=== PATIENT | female | born 2000 | race Caucasian/White ===

== ENCOUNTER 2023-11-19 19:15 | Emergency (ER) | payer OTHER, SELFPAY ==
[2023-11-19 19:32] VITALS: BP 144/62; PULSE 81; RESP 14; TEMP 36.6; O2SAT 100
[2023-11-20 00:46] VITALS: BP 150/80; PULSE 74; RESP 15; O2SAT 100
[2023-11-20 00:53] LABS: Add Urine Microscopic? YES; Appearance Urine Cloudy (Clear); Bilirubin Urine Negative (Negative); Blood Urine 3+ (Negative); Color Urine Dark Yellow (Yellow); Glucose Urine UA Negative (Negative); Ketones Urine Trace mg/dL (Negative); Leukocyte Esterase Ur 2+ LEU/UL (Negative); Nitrate Urine Negative (Negative); Non Pathogenic Casts 0-2; Protein Urine 1+ mg/dL (Negative); RBC Urine >100 /hpf (0-2); Specific Grav Ur 1.023 (1.001-1.035); Squamous Epithelial Cell Urine Occasional /hpf (Few); WBC Urine >100 /hpf (0-3); pH Urine 5.5 (5.0-9.0)
[2023-11-20 00:58] LABS: Bacteria Urine 1+ /hpf
[2023-11-20 01:43] LABS: BEDSIDEPREGUCG Negative
--- NOTE | 2023-11-20 02:09 | ED.FEMALEGU ---
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 Patient notes approximately 7 days ago after she urinated she wiped and noticed a little bit of blood with on there and then it went away for few days and then returned approximately 3 days ago is now having a little bit more blood in which she has been wearing pads and today she went through approximately 3 pads in which she did fully saturated over about a 12 hour.. Patient states she has been having some lower abdominal cramping without any laterality to it over the past approximately 9-10 days. Patient admits to having an IUD in place. Patient notes that prior to the onset of the spotting she had intercourse and thought that might be related. Patient denies any abnormal vaginal discharge or history to transmitted infections. Patient denies chest pain, difficulty breathing, lightheadedness, palpitations. Patient is a typical menstrual cycles are regular at 1 per month and last 7 days and she is not a heavy bleeder and her last menstrual period was 7 through the 01 of November. Patient denies any urinary discomfort, frequency, urgency. Patient notes that she follows with a tile picker regularly through [facility]. Patient has never required a blood transfusion. Patient denies any recent injuries or recent illness, fever, vomiting, diarrhea, melena, hematochezia. Related Data Allergies Allergy/AdvReac Type Severity Reaction Status Date / Time No Known Allergies Allergy Verified 11/19/23 19:35 Review of Systems Review of Systems: A 10 system review of systems was completed on the patient and is negative except for what is stated in the HPI. Nursing and ancillary documentation was reviewed. PMFSH Comments At time of signature, I have reviewed and agree with nursing past medical, surgical, social and family history unless otherwise noted. Please see the nursing chart for further information. There is no relevant family history pertinent to the presenting complaint. Exam Narrative: CONST: No acute distress. Well nourished. HENMT: Head is normocephalic and atraumatic. Moist mucous membranes. No posterior oropharynx erythema. EYES: No scleral icterus. No conjunctival injection or pallor. PERRL. NECK: No meningeal signs. RESP: Able to speak in full sentences. Normal respiratory effort. CTAB. CARDIO: Regular rate. Regular rhythm. 2+ DP and radial pulses bilaterally. GI: Nondistended. No tenderness to palpation. Soft. : No CVA tenderness to palpation. SKIN: No rashes or lesions noted on exposed skin. NEURO: Oriented x3. Moves all extremities. EXTREM/MSK/BACK: No pedal edema. PSYCH: Normal affect. Course Vital Signs Vital signs: Vital Signs Temperature 97.9 F 11/19/23 19:32 Pulse Rate 81 11/19/23 19:32 Respiratory Rate 14 11/19/23 19:32 Blood Pressure 144/62 H 11/19/23 19:32 Pulse Oximetry 100 11/19/23 19:32 Oxygen Delivery Room Air 11/19/23 19:32 Temperature 97.9 F 11/19/23 19:32 Pulse Rate 74 11/20/23 00:46 Respiratory Rate 15 11/20/23 00:46 Blood Pressure 150/80 H 11/20/23 00:46 Pulse Oximetry 100 11/20/23 00:46 Oxygen Delivery Room Air 11/19/23 19:32 MDM - Female Genitourinary MDM Narrative Medical decision making narrative: Patient presents with the above complaint. Initial vitals are remarkable for no significant abnormalities. Physical examination as noted above. Differential diagnosis includes was not limited to: related causes of vaginal bleeding versus not related causes of vaginal, UTI, fibroids, adenomyosis, polyps, IV toward dysfunction, coagulopathy, malignancy. The patient and reviewed the various causes of non related a
[2023-11-20] MEDS: CEPHALEXIN 500 MG CAPSULE PO (02:19)
[2023-11-20 02:26] VITALS: BP 138/90; PULSE 71; RESP 15; O2SAT 100
== END 2023-11-20 02:27 | disposition home or self-care (01) ==
PROVIDERS: Emergency Provider Student in an Organized Health Care Education/Training Program
DX: N30.01 Acute cystitis with hematuria (principal); N93.9 Abnormal uterine and vaginal bleeding, unspecified; Z97.5 Presence of (intrauterine) contraceptive device
CPT/HCPCS: 81001; 81025; 87086; 87088; 99283; A9270

== ENCOUNTER 2023-12-22 21:44 | Emergency (ER) | payer OTHER, SELFPAY ==
--- NOTE | ~2023-12-22 | XR_ITS ---
Left ankle Technique: AP, oblique, and lateral views were obtained. Clinical History: Pain Findings: No acute fracture or dislocation is seen. Osseous alignment is anatomic. Ankle mortise and other visualized joint spaces are preserved. Soft tissues are otherwise unremarkable. Impression: Unremarkable left ankle. Reviewed, dictated and finalized at location . Impression: Unremarkable left ankle.
[2023-12-22 21:48] VITALS: BP 156/89; PULSE 82; RESP 18; TEMP 36.3; O2SAT 98
--- NOTE | 2023-12-22 21:48 | ED.LOWEXIN ---
HPI - Extremity Injury (Lower) General Chief Complaint: Extremity Injury, Lower Stated Complaint: left ankle injury Time Seen by Provider: 12/22/23 21:48 Source: patient Mode of arrival: ambulatory Limitations: no limitations History of Present Illness HPI Narrative: 23-year-old female presented to the ED with a 1 day history of -- left ankle pain. Her daughter jumped on a ankle yesterday and twisted it. Subsequently she has been having ankle pain which is worse on walking. No other injuries noted. MD complaint: ankle injury Onset (ago): day(s) ( One day) Type of Injury: eversion Place: home Severity: mild Relieving factors: immobilization Exacerbating factors: weight bearing Other symptoms: none Related Data Home Medications Medication Instructions Recorded Confirmed No Home Medications 12/22/23 12/22/23 Allergies Allergy/AdvReac Type Severity Reaction Status Date / Time No Known Allergies Allergy Verified 11/19/23 19:35 Review of Systems Review of Systems: All systems reviewed & are unremarkable except as noted in HPI and below Exam Narrative: blood pressure is 156/89 Const: General: no acute distress Orientation/consciousness: patient oriented x3 Limitations: no limitations HENMT: Head: normal to inspection Ears: external ears normal Face/Nose/Sinus: Normal external nose present Face and sinus: normal facial exam Mouth: Yes Normal oral and palatal mucosa present Throat: posterior oropharynx normal Eyes: Conjunctivae: conjunctivae normal Pupils: Equal, round and reactive pupils present EOM: EOMs intact bilaterally Direct Ophthalmoscopy: no photophobia Neck: Neck: normal visual inspection Chest: Chest palpation & inspection: normal inspection of the chest Resp: Effort & Inspection: normal respiratory effort Auscultation: clear to auscultation bilaterally Cardio: Rate: regular rate Rhythm: regular rhythm GI: GI Palp: Yes Soft to palpation Other: no tenderness/ rigidity/ rebound. : General: Yes no CVA tenderness Back/Spine/Pelvis: Back: no CVA tenderness Skin: General skin exam: normal color Rashes: no rashes Wounds: no wounds Neuro: General: patient oriented x3, moves all extremities and no meningeal signs Speech: normal speech Extrem: General: normal to inspection Other: Left ankle-- normal range of motion. No tenderness noted. She complains of pain around the lateral malleolus. Psych: Mental Status: mental status grossly normal Affect: normal affect Attitude: cooperative Course Course Emergency Course: Left ankle pain-- x-ray of the ankle did not show any fracture/ dislocation. The patient does not have any ankle swelling or decrease in range of motion. Vital Signs Vital signs: Vital Signs Temperature 36.3 C L 12/22/23 21:48 Pulse Rate 82 12/22/23 21:48 Respiratory Rate 18 12/22/23 21:48 Blood Pressure 156/89 H 12/22/23 21:48 Pulse Oximetry 98 12/22/23 21:48 Oxygen Delivery Room Air 12/22/23 21:48 Temperature 36.3 C L 12/22/23 21:48 Pulse Rate 82 12/22/23 21:48 Respiratory Rate 18 12/22/23 21:48 Blood Pressure 156/89 H 12/22/23 21:48 Pulse Oximetry 98 12/22/23 21:48 Oxygen Delivery Room Air 12/22/23 21:48 MDM - Extremity Injury (Lower) MDM Narrative Medical decision making narrative: Ankle pain Differential Diagnosis Differential diagnosis: Likely ankle sprain and strain Imaging Data Attestation: I personally reviewed and interpreted this imaging study as follows: My impression: x-ray of the left ankle does not show any fracture/ dislocation. Discharge Plan Discharge Clinical Impression: Acute ankle pain Qualifiers: Laterality: left Qualified Code(s): M25.572 - Pain in left ankle and joints of left foot Patient Disposition: Home, Self-Care Condition: Stable Instructions: Antibiotic Form, Arthralgia (ED) Patient Language: [place] Prescriptions: No Action
--- NOTE | 2023-12-22 21:56 | PC.NURSE ---
Rubén with xray at the bedside
== END 2023-12-22 22:15 | disposition home or self-care (01) ==
LOC: CHSED 22:09
PROVIDERS: Emergency Provider Internal Medicine Critical Care Medicine
DX: M25.572 Pain in left ankle and joints of left foot (principal); X50.0XXA Overexertion from strenuous movement or load, initial encounter
CPT/HCPCS: 73610; 99283